=== PATIENT | female | born 1995 | race Caucasian/White ===

== ENCOUNTER 2017-06-23 18:41 | Emergency (ER) | payer OTHER ==
[2017-06-23] MEDS ORDERED: Mag-Al Plus 1200 MG/1200 MG/120 MG/30 ML UDCUP ONE (18:57)
[2017-06-23] MEDS ORDERED: Lidocaine Viscous Sol 2% 15 ml UD Cup ONE (18:58)
--- NOTE | 2017-06-23 21:08 | RAD ---
TWO VIEW CHEST: History: Chest pain. FINDINGS: Lung rosario are clear. Heart and mediastinum unremarkable. IMPRESSION: No acute process identified. POS: [id number]
== END 2017-06-23 19:44 | disposition home or self-care (01) ==
LOC: SCSER 18:41
DX: R07.89 Other chest pain (principal)
CPT/HCPCS: 71046; 93005